=== PATIENT | male | born 1975 | race Caucasian/White ===

== ENCOUNTER 2016-11-02 06:38 | Day surgery (SDC) | payer BC, SELFPAY ==
[~2016-11-02 06:38] MED LIST: Lactated Ringers 1,000 ML IV SCH
[2016-11-02] MEDS ORDERED: Lidocaine 2% 5 ML SDV ONE (07:10)
[2016-11-02] MEDS ORDERED: Propofol 200 MG/20 ML SDV ONE (07:10)
[2016-11-02] MEDS ORDERED: Midazolam 1 MG/ML 2 ML SDV ONE (07:10)
[2016-11-02] MEDS ORDERED: fentaNYL 250 MCG/5 ML SDV ONE (07:11)
[2016-11-02] MEDS ORDERED: Gelatin Sponge,Absorbable 12-7 mm Sponge TOP ONE (07:23)
[2016-11-02] MEDS ORDERED: Lidocaine 2% Jelly 30 ML Tube ONE (07:23)
[2016-11-02] MEDS ORDERED: Bupivacaine 0.5% 10 ML SDV ONE (07:24)
--- NOTE | 2016-11-02 07:32 | PCM.PREANE ---
Preanesthetic Assessment - Anesthesia/Transfusion/Family Hx Anesthesia History: No Prior Anesthesia Other Type of Anesthesia Reaction Comment: "sisters have problems with N/V after having anesthesia" Transfusion History: No Prior Transfusion(s) - Review of Systems General: No Symptoms Pulmonary: No Symptoms Cardiovascular: No Symptoms Gastrointestinal: No symptoms Neurological: No Symptoms Other: Reports: None - Physical Assessment NPO Status Date: 11/01/16 O2 Sat by Pulse Oximetry: 96 Respiratory Rate: 16 Vital Signs: Last Vital Signs Temp 36.5 C 11/02/16 06:48 Pulse 78 11/02/16 06:48 Resp 16 11/02/16 06:48 BP 145/78 H 11/02/16 06:48 Pulse Ox 96 11/02/16 06:48 Height: 1.92 m Weight: 159.665 kg ASA Class: 2 Mental Status: Alert & Oriented x3 Airway Class: Mallampati = 1 Dentition: Reports: Normal Dentition ROM/Head Extension: Full Lungs: Clear to auscultation, Normal respiratory effort - Allergies Allergies/Adverse Reactions: Allergies Allergy/AdvReac Type Severity Reaction Status Date / Time No Known Allergies Allergy Verified 10/31/16 11:56 - Acknowledgements Anesthesia Type Planned: General Anesthesia Pt an Appropriate Candidate for the Planned Anesthesia: Yes Alternatives and Risks of Anesthesia Discussed w Pt/Guardian: Yes Pt/Guardian Understands and Agrees with Anesthesia Plan: Yes Additional Comments: by history has GE reflux and HENNA. Plan-- lithotomy with GET PreAnesthesia Questionnaire - Past Health History Medical/Surgical History: Denies Medical/Surgical History Gastrointestinal History: Reports: Hepatitis, Other (see below) Other Gastrointestinal History: hepatitis A at the age of 19, occasional heartburn Genitourinary History: Reports: Renal calculus Other Genitourinary History: hx kidney stones Endocrine/Metabolic History: Reports: Obesity/BMI 30+ Dermatologic History: Reports: Other (see below) Other Dermatologic History: dry skin to elbows - Past Surgical History Head Surgeries/Procedures: Reports: None - SUBSTANCE USE Smoking Status *Q: Current Every Day Smoker Tobacco Use Within Last Twelve Months: Cigarettes Days Per Week of Alcohol Use: 7 Recreational Drug Use History: No - HOME MEDS Home Medications: Home Meds Folic Acid 1 tab PO DAILY 10/31/16 [History] Vitamin B Complex 1 tab PO DAILY 10/31/16 [History] - CURRENT (IN HOUSE) MEDS Current Meds: Current Medications Lactated Ringer's (Ringers, Lactated) 1,000 mls @ 125 mls/hr IV ASDIRECTED DEMETRIUS Last Admin: 11/02/16 06:49 Dose: 125 mls/hr Discontinued Medications Bupivacaine HCl (Sensorcaine-Mpf 0.5%) Confirm Administered Dose 20 ml .ROUTE .STK-MED ONE Stop: 11/02/16 07:25 Fentanyl (Sublimaze) Confirm Administered Dose 250 mcg .ROUTE .STK-MED ONE Stop: 11/02/16 07:12 Gelatin (Gelfoam 12-7 Mm) Confirm Administered Dose 1 each TOP .STK-MED ONE Stop: 11/02/16 07:24 Gelatin (Gelfoam Size 100) Confirm Administered Dose 1 each TOP .STK-MED ONE Stop: 11/02/16 07:25 Lidocaine (Xylocaine-Mpf 2%) Confirm Administered Dose 5 ml .ROUTE .STK-MED ONE Stop: 11/02/16 07:11 Lidocaine HCl (Xylocaine 2% Jelly) Confirm Administered Dose 30 ml .ROUTE .STK- MED ONE Stop: 11/02/16 07:24 Midazolam HCl (Versed 1 Mg/Ml) Confirm Administered Dose 2 mg .ROUTE .STK-MED ONE Stop: 11/02/16 07:11 Propofol (Diprivan 20 Ml) Confirm Administered Dose 400 mg .ROUTE .STK-MED ONE Stop: 11/02/16 07:11
[2016-11-02] MEDS ORDERED: fentaNYL 100 MCG/2 ML SDV IVPUSH PRN (07:33)
[2016-11-02] MEDS ORDERED: Bacitracin Oint 28.35 GM Tube ONE (07:37)
[2016-11-02] MEDS ORDERED: Famotidine 20 MG/2 ML SDV ONE (07:40)
[2016-11-02] MEDS ORDERED: Succinylcholine/Normal Saline 200 MG/10 ML Syringe ONE (08:13)
[2016-11-02] MEDS ORDERED: Rocuronium 10 MG/ML 10 ML Syringe ONE (08:13)
[2016-11-02] MEDS ORDERED: Ondansetron 4 MG/2 ML SDV ONE (08:14)
[2016-11-02] MEDS ORDERED: Phenylephrine/Normal Saline 100 MCG/ML 10 ML Syringe ONE (08:15)
[2016-11-02] MEDS ORDERED: Neostigmine Methylsulfate 1 MG/ML 5 ML Syringe ONE (08:23)
[2016-11-02] MEDS ORDERED: Acetaminophen/HYDROcodone 325-5 MG Tab PO PRN (08:37)
--- NOTE | 2016-11-02 08:40 | PCM.OPNOTE ---
- General Post-Op/Procedure Note Date of Surgery/Procedure: 11/02/16 Operative Procedure(s): Removal of perianal skin tag Pre Op Diagnosis: Symptomatic perianal skin tag Post-Op Diagnosis: Same Anesthesia Technique: General ET tube (ASA III) Primary Surgeon: Delroy Bailey Fluid Replacement, Intraop: 1,000 EBL in mLs: 5 Condition: Good Free Text/Narrative:: Dictation [id number]
[2016-11-02] MEDS ORDERED: Lactated Ringers 1,000 ML IV SCH (08:45)
--- NOTE | 2016-11-02 09:01 | PCM48HPAN ---
Post Anesthesia Note - EVALUATION WITHIN 48HRS OF ANESTHETIC Vital Signs in Normal Range: Yes Patient Participated in Evaluation: Yes Respiratory Function Stable: Yes Airway Patent: Yes Cardiovascular Function Stable: Yes Hydration Status Stable: Yes Pain Control Satisfactory: Yes Nausea and Vomiting Control Satisfactory: Yes Mental Status Recovered: Yes
--- NOTE | 2016-11-02 09:01 | PCM.POSTAN ---
POST ANESTHESIA ASSESSMENT - MENTAL STATUS Mental Status: alert, oriented - RESPIRATORY Respiratory Status: respiratory rate WNL, airway patent - CARDIOVASCULAR CV Status: pulse rate WNL, blood pressure stable - GASTROINTESTINAL GI Status: no symptoms - POST OP HYDRATION Hydration Status: adequate & stable
[2016-11-02 09:35] VITALS: BP 128/72
--- NOTE | 2016-11-02 13:04 | OR ---
SURGEON: Delroy Bailey M.D. DATE OF PROCEDURE: 11/02/2016 OPERATION PERFORMED: Removal of perianal skin tag. ANESTHESIA: General endotracheal. ASA CLASSIFICATION: III E. PREOPERATIVE DIAGNOSIS: Irritated bleeding enlarging perianal skin tag. POSTOPERATIVE DIAGNOSIS: Irritated bleeding enlarging perianal skin tag. ESTIMATED BLOOD LOSS: 5 mL. INTRAOPERATIVE FLUID REPLACEMENT: 1000 mL of crystalloid. DESCRIPTION OF PROCEDURE: The patient was taken to the operating room, placed on the operating table in the supine position. Time-out was called for appropriate identification of patient and procedure. Thigh-high Chandra's and sequential compression boots had been placed. Following satisfactory attainment of general endotracheal anesthesia, the patient was now placed in lithotomy position in the [facility] supports. The perineum was prepped with Betadine solution. Sterile drapes were applied. The skin around the perianal skin tag was infiltrated with 10 mL of 0.5% Marcaine solution. A hemostat was placed across the base of the skin tag and then using electrocautery in both the cutting and coagulating mode, the skin tag was removed. The base was cauterized for hemostasis. The wound was then inspected for hemostasis. No other bleeding was noted. The wound was dressed with antibiotic ointment and an ABD held in place with mesh panties. The patient tolerated the procedure well. Following emergence from anesthesia and extubation, he was taken to recovery room in satisfactory condition. CATHERINE CAREY /[id number]
== END 2016-11-02 09:32 | disposition home or self-care (01) ==
LOC: MW.SDS 06:38
PROVIDERS: ATTEND Surgery
DX: K64.4 Residual hemorrhoidal skin tags (principal); E66.01 Morbid (severe) obesity due to excess calories; F17.210 Nicotine dependence, cigarettes, uncomplicated; Z72.0 Tobacco use; Z79.899 Other long term (current) drug therapy; Z78.9 Other specified health status
CPT/HCPCS: 46220; J2250; J2405; J3010; J7120; 00902; 88305; A9270-GY; J2704